=== PATIENT | female | born 1965 ===

== ENCOUNTER 2021-03-09 08:31 | Emergency (ER) | payer OTHER ==
[~2021-03-09] VITALS: Ht 152.4 cm; Wt 104.3 kg
[~2021-03-09 08:31] MED LIST: ASPI325 PO; CEPH500 PO; LEVFLO500 PO; PROACE100 PO; Pyridium100 MG PO; RXPROACE PO; [UNRECOGNIZED DRUG - REMARK]
[2021-03-09] MEDS ORDERED: ONDA4ODT MM (09:35)
== END 2021-03-09 09:39 | disposition home or self-care (01) ==
LOC: ER 08:31
DX: U07.1 COVID-19 (principal); Z88.0 Allergy status to penicillin
CPT/HCPCS: 99283

== ENCOUNTER → 2022-07-19 | Outpatient (CLI) | payer OTHER ==
[~2022-07-19] MED LIST changes: +ONDA4ODT MM
== END | disposition home or self-care (01) ==
LOC: LAB SHORT 11:18 → LAB 11:18
DX: N39.0 Urinary tract infection, site not specified (principal)
CPT/HCPCS: 87086